=== PATIENT | male | born 1950 | race Caucasian/White ===

== ENCOUNTER → 2019-04-22 | Outpatient (CLI) | payer MEDICARE | END | disposition home or self-care (01) | LOC: CVU 07:02 | PROVIDERS: ATTEND Internal Medicine Cardiovascular Disease | DX: I65.23 Occlusion and stenosis of bilateral carotid arteries (principal); I10 Essential (primary) hypertension; I48.91 Unspecified atrial fibrillation | CPT/HCPCS: 93880 ==

== ENCOUNTER 2020-05-30 15:07 | Outpatient (CLI) | payer MEDICARE | END 2020-05-30 23:59 | disposition home or self-care (01) | LOC: CVU 15:07 | PROVIDERS: ATTEND Internal Medicine Cardiovascular Disease | DX: I08.0 Rheumatic disorders of both mitral and aortic valves (principal); I65.23 Occlusion and stenosis of bilateral carotid arteries; I27.20 Pulmonary hypertension, unspecified; E78.5 Hyperlipidemia, unspecified; E78.00 Pure hypercholesterolemia, unspecified; I10 Essential (primary) hypertension; Z87.891 Personal history of nicotine dependence | CPT/HCPCS: 93306; 93880 ==